=== PATIENT | female | born 1980 | race Caucasian/White ===

== ENCOUNTER 2021-05-24 06:00 | Inpatient (IN) | payer BC ==
[2021-05-24 07:55] VITALS: BMI 31.2
[2021-05-24] MEDS ORDERED: LIGASURE IMPACT TP ONE (08:14)
[2021-05-24] MEDS ORDERED: CITRIC ACID/SODIUM CITRATE 30 ML UNIT-DOSE CUP PO ONE (10:06)
[2021-05-24] MEDS ORDERED: SUCCINYLCHOLINE CHLORIDE 200 MG/10 ML SYRINGE ONE (10:13)
[2021-05-24] MEDS ORDERED: morphine SULFATE/PF 0.5 MG/ML (2cc Syringe - QUVA) ONE (10:13)
[2021-05-24] MEDS ORDERED: ceFAZolin 2 GRAM PREMIX BAG IVPB PRN (10:15)
[2021-05-24] MEDS ORDERED: ELECTROLYTE-148 SOLN 1,000 ML IV SCH (10:15)
[2021-05-24] MEDS ORDERED: ACETAMINOPHEN 1000 MG/100 ML VIAL (NON FORMULARY) IVPB PRN (11:38)
[2021-05-24] MEDS ORDERED: ONDANSETRON 4 MG/2 ML VIAL IVPB PRN (11:38)
[2021-05-24] MEDS ORDERED: oxyCODONE HCL 5 MG TABLET PO PRN (11:38)
[2021-05-24] MEDS ORDERED: IBUPROFEN 800 MG/8 ML IJ IVPB PRN (11:38)
[2021-05-24] MEDS ORDERED: OXYTOCIN 20 UNITS in 0.9% NS 20 UNIT/1,000 ML INFUS.BAG IV SCH (11:45)
[2021-05-24] MEDS ORDERED: morphine SULFATE/PF 0.5 MG/ML (2cc Syringe - QUVA) EP ONE (11:56)
[2021-05-24] MEDS ORDERED: ONDANSETRON 4 MG/2 ML VIAL IVPUSH PRN (11:56)
[2021-05-24] MEDS ORDERED: ACETAMINOPHEN INJECTION 100 ML IVPB ONE (12:25)
[2021-05-24] MEDS ORDERED: OXYTOCIN 20 UNITS in 0.9% NS 20 UNIT/1,000 ML INFUS.BAG IV ONE (13:11)
[2021-05-24] MEDS: ceFAZolin 2 GRAM PREMIX BAG IVPB SCH (17:15)
[2021-05-25] MEDS: ceFAZolin 2 GRAM PREMIX BAG IVPB SCH ×2 (02:12→09:04)
[2021-05-25 08:14] LABS: BASO % 0.3 % (0-2.0); EOS % 0.2 % (0-4.5); HEMATOCRIT 34.4 % (32.4-45.2); HEMOGLOBIN 11.6 GM/dL (10.7-15.3); LYMPH % 12.5 % (8-40); MCH 32.3 pg (25.7-33.7); MCHC 33.6 g/dl (32.0-36.0); MEAN CELL VOLUME 96.1 fl (80-96); MEAN PLT VOLUME 11.5 fl (7.5-11.1); MONO % 5.2 % (3.8-10.2); NEUT % 81.8 % (42.8-82.8); PLATELET COUNT 146 10^3/uL (134-434); RBC 3.58 M/mm3 (3.60-5.2); RDW 13.3 % (11.6-15.6); WHITE BLOOD COUNT 11.6 K/mm3 (4.0-10.0)
[2021-05-25] MEDS: IBUPROFEN 600 MG TABLET (FP) PO PRN ×3 (09:02→20:03)
[2021-05-25] MEDS: ACETAMINOPHEN 325 MG TABLET (FP) PO PRN ×3 (09:04→20:04)
[2021-05-25] MEDS ORDERED: BISACODYL 10 MG SUPP.RECT RC PRN (11:40)
[2021-05-25] MEDS: SIMETHICONE 80 MG TAB.CHEW (FP) PO PRN (14:01)
[2021-05-25] MEDS: SENNOSIDES/DOCUSATE COMBO (SENNA PLUS) TABLET (UD) PO PRN (20:04)
[2021-05-26] MEDS: ACETAMINOPHEN 325 MG TABLET (FP) PO PRN ×4 (01:51→20:30)
[2021-05-26] MEDS: IBUPROFEN 600 MG TABLET (FP) PO PRN ×4 (01:52→20:32)
[2021-05-26] MEDS: SIMETHICONE 80 MG TAB.CHEW (FP) PO PRN ×2 (01:57→13:32)
[2021-05-26] MEDS: SENNOSIDES/DOCUSATE COMBO (SENNA PLUS) TABLET (UD) PO PRN (20:33)
[2021-05-27] MEDS: IBUPROFEN 600 MG TABLET (FP) PO PRN ×2 (01:41→07:47)
[2021-05-27] MEDS: SIMETHICONE 80 MG TAB.CHEW (FP) PO PRN ×2 (01:42→07:48)
[2021-05-27] MEDS: ACETAMINOPHEN 325 MG TABLET (FP) PO PRN ×2 (01:42→07:47)
[2021-05-27 09:52] VITALS: BP 134/84; PULSE 79; TEMP 97.9
== END 2021-05-27 12:40 | disposition home or self-care (01) | DRG 785 ==
LOC: JLDR 06:00 → J3W 13:30
PROVIDERS: ADMIT Specialist; ATTEND Specialist
PROC: 10D00Z1 Extraction of Products of Conception, Low, Open Approach (ICD-10-PCS; principal; 2021-05-24)
PROC: 0UT70ZZ Resection of Bilateral Fallopian Tubes, Open Approach (ICD-10-PCS; 2021-05-24)
DX: O34.219 Maternal care for unspecified type scar from previous cesarean delivery (principal); Z30.2 Encounter for sterilization; Z86.16 Personal history of COVID-19; Z3A.39 39 weeks gestation of pregnancy; Z37.0 Single live birth
CPT/HCPCS: 36415; 85025; 88302-TC; 88304-TC; 88307-TC; J0131